=== PATIENT | female | born 1975 | race Caucasian/White ===

== ENCOUNTER 2016-03-09 14:08 | Emergency (ER) | payer SELFPAY ==
[2016-03-09 14:13] VITALS: TEMP 98.3; BMI 46.7
[2016-03-09] MEDS ORDERED: IBUPROFEN 800 MG TAB PO ONE (14:24)
[2016-03-09] MEDS ORDERED: ONDANSETRON HCL 4 MG ODT TAB PO ONE (14:24)
--- NOTE | 2016-03-09 14:24 | EDPRACDOC ---
- General Information Chief Complaint: Abdominal Pain Stated Complaint: LT SIDE PAIN Time Seen by Provider: 03/09/16 14:15 Mode Of Arrival: Car Home Medications: Home Medications CloNIDine (Antihypertensive) [Catapres] 0.2 mg PO HS 10/18/15 Escitalopram Oxalate [Lexapro] 40 mg PO QAM 10/18/15 Lisinopril 20 mg PO DAILY #30 tablet 10/18/15 Methylphenidate HCl [Ritalin] 30 mg PO DAILY 10/18/15 Quetiapine Fumarate [Seroquel] 50 mg PO QHS 10/18/15 Trazodone HCl [Desyrel] 50 mg PO QHS 10/18/15 Hydrocodone Bit/Acetaminophen [Hydrocodon-Acetaminophen 5-325] 1 - 2 tab PO Q6H PRN #7 tab 03/09/16 Ondansetron HCl [Zofran] 4 mg PO TID PRN #7 tablet 03/09/16 Allergies/Adverse Reactions: Allergies Allergy/AdvReac Type Severity Reaction Status Date / Time latex Allergy Rash-Genera Verified 03/09/16 14:13 lized - History of Present Illness Onset: YEST Pain Location: Reports: LUQ Pain Context: Reports: Spontaneous Pain Severity: Moderate Pain Quality: Reports: Aching, Colicky Pain Radiation: Reports: Other (LLQ) Last Menstrual Period: 02/23/16 : No Control Method: Reports: BTL Modifying Factors: improves with: Nothing. worse with: Movement Female Associated Signs & Symptoms: Reports: Nausea, Diarrhea (5-6 EPISODES THIS AM). 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 Treated With Medication NURSING EDUCATION CONSULTANT YES Ibuprofen/Acetaminophen (Dose/ TYLENOL 1000MG-0800 Time) ED Past Medical History - History Reviewed Yes Nurses notes reviewed and agree except as marked - Patient Medical History Cardiac History: Reports: Hypertension Psychological History: Reports: Depression Systemic History: Denies: Cancer Surgical History: Denies: Hysterectomy Additional Past Surgical History: BTL - Social Medical History Smoking Status: Former smoker ETOH: None Substance Abuse: None Lives With: Family Lives In: Home EDM Review of Systems - Review of Systems ROS Negative Except as Marked: Yes All systems reviewed and were negative except as marked - Physical Exam Constitutional: No apparent distress, Alert (Awake), Restless (MILD) Oriented to: Time, Person, Place Last recorded Vital Signs: Last Vital Signs Temp 98.3 F 03/09/16 14:10 Pulse 84 03/09/16 15:38 Resp 18 03/09/16 15:38 BP 124/56 L 03/09/16 15:38 Pulse Ox 98 03/09/16 15:38 Oxygen Pulse Oxygen Saturation 98 O2 Device Room Air Oxygen Flow Rate Fraction of Inspired Oxygen ( FIO2) - HEENT Head: Normal ( normocephalic) Eye Exam: Normal (PERRL, EOMI, Sclera white) Oropharynx: Normal (Pharynx:Moist without exudate,Gums-no swelling) Nose: No Symptoms Reported (septum midline) Neck: Normal (FROM, trachea at midline) - Respiratory/Cardiovascular Respiratory: Normal - CTA (BBS clear to auscultation without adventitious sounds ) Cardiovascular: Normal (RRR without murmur, gallop or rub) - GI Auscultation: Normal (NABS) Palpation: Normal (Soft,No rebound or guarding, non distended) Tenderness: Non tender. negative: Guarding, Rebound, Rigidity Garcia's Sign: Negative - Musculoskeletal Back: Normal (Non-Tender). negative: CVA Tenderness Extremities: Normal (Normal tone, Pulses 2+ No cyanosis or edema, FROM) - Integumentary Skin: Normal, Warm, Dry Lymphatics: Normal (no adenopathy) - Neurologic Memory Impaired: Normal Motor Function: Normal (Normal tone, Pulses 2+ No cyanosis or edema, FROM) Cranial Nerve: Normal (CN II-X11 intact sensation, strength 5/5) Cerebellar: Normal Mood Description: Normal Perception: Normal - Re-evaluation Re-evaluation 3 Re-evaluation Time: 16:19 ABD EXAM BENIGN - Results 03/09/16 15:30 03/09/16 15:30 WBC 6.2 xk/uL (3.8-10.8) 03/09/16 15:30 RBC 4.67 xM/uL (4.20-5.40) 03/09/16 15:30 Hgb 11.2 g/dL (12.0-16.0) L 03/09/16 15:30 Hct 35.2 % (36-47) L 03/09/16 15:30 MCV 75 fL (81-99) L 03/09/16 15:30 MCH 23.9 pg (27-32) L 03/09/16 15:30 MCHC 31.8 g/dl (33-36) L 03/09/16 15:30 RDW 16.5 % (11.5-14.5) H 03/09/16 15:30 Plt Count 284 xk/uL (130-400) 03/09/16 15:30 MPV 8.0 fL (7.4-10.4) 03/09/16 15:30 Neut % (Auto) Cancelled 03/09/16 15:30 Lymph % (Auto) Cancelled 03/09/16 15:30 Arthur % (Auto) Cancelled 03/09/16 15:30 Eos % (Auto) Cancelled 03/09/16 15:30 Baso % (Auto) Cancelled 03/09/16 15:30 Absolute Neuts (auto) Cancelled 03/09/16 15:30 Absolute Lymphs (auto) Cancelled 03/09/16 15:30 Seg Neuts % (Manual) 60 % (45-76) 03/09/16 15:30 Band Neutrophils % 0 % (0-5) 03/09/16 15:30 Lymphocytes % (Manual) 35 % (17-44) 03/09/16 15:30 Monocytes % (Manual) 3 % (0-10) 03/09/16 15:30 Eosinophils % (Manual) 2 % (0-5) 03/09/16 15:30 Absolute Neutrophils 3.72 xk/uL (1.7-8.2) 03/09/16 15:30 Absolute Lymphocytes 2.17 xk/uL (0.65-4.75) 03/09/16 15:30 Platelet Estimate Norm (NORMAL) 03/09/16 15:30 RBC Morphology 1+ hypo 1+ aniso 03/09/16 15:30 RBC Morphology 1+ hypo 1+ aniso 03/09/16 15:30 Sodium 136 mEq/L (137-146) L 03/09/16 15:30 Potassium 4.2 mEq/L (3.5-5.1) 03/09/16 15:30 Chloride 102 mEq/L (98-107) 03/09/16 15:30 Carbon Dioxide 26 mMOL/L (22-33) 03/09/16 15:30 Anion Gap 12 mEq/L (8-16) 03/09/16 15:30 BUN 7 MG/DL (7-17) 03/09/16 15:30 Creatinine 0.70 MG/DL (0.52-1.04) 03/09/16 15:30 Estimated GFR (MDRD) > 60 mL/min (>=60) 03/09/16 15:30 Glucose 83 MG/DL (70-99) 03/09/16 15:30 Calculated Osmolality 259 MOs/Kg (270-290) L 03/09/16 15:30 Calcium 9.6 MG/DL (8.4-10.2) 03/09/16 15:30 Total Bilirubin 0.6 MG/DL (0.2-1.3) 03/09/16 15:30 AST 32 IU/L (14-36) 03/09/16 15:30 ALT 44 IU/L (9-52) 03/09/16 15:30 Alkaline Phosphatase 113 IU/L (38-126) 03/09/16 15:30 Total Protein 7.2 G/DL (6.3-8.2) 03/09/16 15:30 Albumin 4.1 G/DL (3.5-5.0) 03/09/16 15:30 Urine Color Yellow 03/09/16 14:35 Urine Clarity Clear 03/09/16 14:35 Urine pH 7.0 (5.0-8.0) 03/09/16 14:35 Ur Specific Winston 1.005 (1.003-1.035) 03/09/16 14:35 Urine Protein Neg (NEG/TRACE) 03/09/16 14:35 Urine Glucose (UA) Neg (NEGATIVE) 03/09/16 14:35 Urine Ketones Neg (NEGATIVE) 03/09/16 14:35 Urine Occult Blood Neg (NEG/TRACE) 03/09/16 14:35 Urine Nitrite Neg (NEGATIVE) 03/09/16 14:35 Urine Bilirubin Neg (NEGATIVE) 03/09/16 14:35 Urine Urobilinogen 0.2 MG/DL (0-1) 03/09/16 14:35 Ur Leukocyte Esterase Neg (NEGATIVE) 03/09/16 14:35 Urine RBC 0-2 (0-5) 03/09/16 14:35 Urine WBC 0-2 (0-5) 03/09/16 14:35 Ur Epithelial Cells 3+ 03/09/16 14:35 Urine Bacteria Few (NEG/FEW) 03/09/16 14:35 Urine Mucus Occ (NEG/OCC) 03/09/16 14:35 Lab Results 03/09/16 03/09/16 03/09/16 15:30 15:30 14:35 WBC 6.2 RBC 4.67 Hgb 11.2 L Hct 35.2 L MCV 75 L MCH 23.9 L MCHC 31.8 L RDW 16.5 H Plt Count 284 MPV 8.0 Neut % (Auto) Cancelled Lymph % (Auto) Cancelled Arthur % (Auto) Cancelled Eos % (Auto) Cancelled Baso % (Auto) Cancelled Absolute Neuts (auto) Cancelled Absolute Lymphs (auto) Cancelled Seg Neuts % (Manual) 60 Band Neutrophils % 0 Lymphocytes % (Manual) 35 Monocytes % (Manual) 3 Eosinophils % (Manual) 2 Absolute Neutrophils 3.72 Absolute Lymphocytes 2.17 Platelet Estimate Norm RBC Morphology 1+ aniso Sodium 136 L Potassium 4.2 Chloride 102 Carbon Dioxide 26 Anion Gap 12 BUN 7 Creatinine 0.70 Estimated GFR (MDRD) > 60 Glucose 83 Calculated Osmolality 259 L Calcium 9.6 Total Bilirubin 0.6 AST 32 ALT 44 Alkaline Phosphatase 113 Total Protein 7.2 Albumin 4.1 Urine Color Yellow Urine Clarity Clear Urine pH 7.0 Ur Specific Winston 1.005 Urine Protein Neg Urine Glucose (UA) Neg Urine Ketones Neg Urine Occult Blood Neg Urine Nitrite Neg Urine Bilirubin Neg Urine Urobilinogen 0.2 Ur Leukocyte Esterase Neg Urine RBC 0-2 Urine WBC 0-2 Ur Epithelial Cells 3+ Urine Bacteria Few Urine Mucus Occ - Additional Information An extensive discussion regarding CT imaging was undertaken with the patient. Risk of radiation exposure leading to possible increased malignancy rates in the future, Benefits such as diagnostic information, and Alternatives such as observation or other alternative test were discussed. WE AGREE IN DEFER CT AND WATCHFUL WAITING. - Departure Disposition: Home Condition: Good Final Diagnosis: Abdominal pain Diarrhea Qualifiers: Diarrhea type: presumed infectious Qualified Code(s): A09 - Infectious gastroenteritis and colitis, unspecified Instructions: Acute Abdominal Pain (ED), Acute Diarrhea (ED) Education/Counseling Given To: Patient Education/Counseling Given Regarding: Diagnosis, Treatment, Prognosis Referrals: Oral Presley MD [Primary Care Provider] - One Week Prescriptions: Hydrocodone Bit/Acetaminophen [Hydrocodon-Acetaminophen 5-325] 1 - 2 tab PO Q6H PRN #7 tab PRN Reason: Pain Ondansetron HCl [Zofran] 4 mg PO TID PRN #7 tablet PRN Reason: NAUSEA OR VOMITING Additional Instructions: 617 Return to the Emergency Department for worse or different abdominal problems, especially in the next 12 - 24 hours. The test today did not determine the cause of your pain..
[2016-03-09 14:44] LABS: RBC/URINE 0-2 (0-5); WBC/URINE 0-2 (0-5)
[2016-03-09 14:45] LABS: LEUKOCYTES/URINE NEG (NEGATIVE); NITRITE/URINE NEG (NEGATIVE); URINE OCCULT BLOOD NEG (NEG/TRACE)
[2016-03-09 16:07] LABS: BLOOD UREA NITROGEN 7 MG/DL (7-17); CALCIUM 9.6 MG/DL (8.4-10.2); CALCULATED OSMOLALITY 259 MOs/Kg (270-290); CHLORIDE 102 mEq/L (98-107); GLUCOSE 83 MG/DL (70-99); SODIUM LEVEL 136 mEq/L (137-146); TOTAL PROTEIN 7.2 G/DL (6.3-8.2)
[2016-03-09 16:09] LABS: SEG NEUTROPHIL 60 % (45-76)
[2016-03-09 16:45] VITALS: BP 127/65; PULSE 80
== END 2016-03-09 16:30 | disposition home or self-care (01) ==
LOC: ED 14:08
DX: A09 Infectious gastroenteritis and colitis, unspecified (principal); R10.9 Unspecified abdominal pain
CPT/HCPCS: 36415; 80053; 81001; 85007; 85027; 99284; J3490